=== PATIENT | female | born 1995 | race Two or more races ===

== ENCOUNTER 2019-04-14 09:42 | Emergency (ER) | payer MEDICAID ==
[~2019-04-14] VITALS: Ht 170.2 cm; Wt 111.1 kg
[2019-04-14 11:11] LABS: Urine Bacteria NONE SEEN /hpf (None Seen); Urine Blood 3+ /uL (Negative); Urine Specific Gravity 1.021 (1.001-1.035); Urine WBC 20 /hpf (0 - 5)
[2019-04-14 13:00] VITALS: BP 120/88
== END 2019-04-14 13:54 | disposition home or self-care (01) ==
LOC: ER 09:42
DX: O03.9 Complete or unspecified spontaneous abortion without complication (principal); O23.41 Unspecified infection of urinary tract in pregnancy, first trimester; Z3A.01 Less than 8 weeks gestation of pregnancy
CPT/HCPCS: 36415; 76801; 81001; 84702